=== PATIENT | female | born 1935 | race Native Hawaiian/Other Pacific Islander ===

== ENCOUNTER 2016-10-14 08:35 | Outpatient (CLI) | payer OTHER ==
[~2016-10-14 08:35] MED LIST: ASA LO-DOSE81 MG PO; CENTRUM SILVE1 PO; FISH OIL1 C10 PO; LEVO0.0529 PO; LISI20TA24 PO; LOVA20TA PO
== END 2016-10-14 10:00 | disposition home or self-care (01) ==
LOC: CT 08:35
DX: R79.82 Elevated C-reactive protein (CRP) (principal); N39.0 Urinary tract infection, site not specified; K57.30 Diverticulosis of large intestine without perforation or abscess without bleeding
CPT/HCPCS: 36415; 82565; 84520; Q9963

== ENCOUNTER 2017-06-05 11:44 | Outpatient (CLI) | payer OTHER | END 2017-06-05 19:21 | disposition home or self-care (01) | LOC: RAD 11:44 | DX: M54.17 Radiculopathy, lumbosacral region (principal); M25.552 Pain in left hip ==

== ENCOUNTER 2017-07-01 13:44 | Outpatient (CLI) | payer OTHER | END 2017-07-01 19:56 | disposition home or self-care (01) | LOC: MRI 13:44 | DX: M16.12 Unilateral primary osteoarthritis, left hip (principal) ==

== ENCOUNTER 2019-05-13 05:50 | Outpatient (CLI) | payer OTHER | END 2019-05-13 06:01 | disposition short-term general hospital (02) | LOC: AMB 05:50 | DX: R11.2 Nausea with vomiting, unspecified (principal) | CPT/HCPCS: A0425; A0427 ==

== ENCOUNTER 2019-05-13 06:03 | Emergency (ER) | payer OTHER ==
[~2019-05-13] VITALS: Ht 170.2 cm; Wt 66.2 kg
[2019-05-13 06:12] VITALS: TEMP 97
[2019-05-13 06:41] LABS: PLATELET COUNT 269 K/uL (152-353)
[2019-05-13 07:06] LABS: POTASSIUM 3.7 mmol/L (3.6-5.2)
[2019-05-13 07:59] VITALS: BP 177/79
== END 2019-05-13 08:00 | disposition home or self-care (01) ==
LOC: ED 06:03
PROVIDERS: Emergency Medicine
DX: R42 Dizziness and giddiness (principal)
CPT/HCPCS: 80053; 85027; 93005; 96360; 96375; 99284